=== PATIENT | female | born 1980 | race Caucasian/White ===

== ENCOUNTER 2019-06-17 10:48 | Emergency (ER) | payer OTHER ==
[2019-06-17 11:08] LABS: ADD MAN DIFF? NO
[2019-06-17 11:10] LABS: BASOPHILS % 0.3 % (0.0-2.0); EOSINOPHILS # 0.1 10^3/ul (0.0-0.5); EOSINOPHILS % 1.2 % (0.0-7.0); HEMATOCRIT 43.4 % (37.0-47.0); HEMOGLOBIN 14.2 g/dl (12.0-16.0); LYMPHOCYTES # 3.4 10^3/ul (0.8-2.9); MEAN CORPUSCULAR HGB CONC 32.7 g/dl (32.0-37.0); MEAN CORPUSCULAR VOLUME 91.8 fl (82.0-101.0); MEAN PLATELET VOLUME 10.8 fl (7.4-10.4); MONOCYTE # 0.4 10^3/ul (0.3-0.9); MONOCYTES % 4.9 % (0.0-11.0); NEUTROPHIL # 4.9 10^3/ul (1.6-7.5); NEUTROPHILS % 55.4 % (39.0-77.0); PLATELET COUNT 327 10^3/UL (140-415); RED BLOOD COUNT 4.73 10^6/ul (4.20-5.40); RED CELL DISTRIBUTION WIDTH 12.3 % (11.5-14.5)
[2019-06-17 11:10] LABS: WHITE BLOOD COUNT 8.9 10^3/ul (4.8-10.8)
[2019-06-17] MEDS: KETOROLAC 30 MG INJ IV (11:22)
[2019-06-17] MEDS: METOCLOPRAMIDE 10 MG INJ IV (11:22)
[2019-06-17] MEDS: DIPHENHYDRAMINE 50 MG INJ IV (11:22)
[2019-06-17] MEDS: SOD CHLORIDE 0.9% 1,000 ML IV (11:22)
[2019-06-17 11:51] LABS: ANION GAP 12 (5-13); BLOOD UREA NITROGEN 8 mg/dl (7-20); CALCIUM 9.5 mg/dl (8.4-10.2); CARBON DIOXIDE 25 mmol/L (21-31); CHLORIDE 103 mmol/L (97-110); CREATININE 0.58 mg/dl (0.44-1.00); Estimated GFR > 60 mL/min (>60); GLUCOSE 76 mg/dl (70-220); POTASSIUM 3.8 mmol/L (3.5-5.1); SODIUM 140 mmol/L (135-144)
[2019-06-17 13:13] LABS: INR 0.92; PROTIME 12.5 Sec (11.9-14.9)
[2019-06-17 13:14] LABS: PARTIAL THROMBOPLASTIN TIME 33.3 Sec (23.0-35.0)
[2019-06-17] MEDS: HYDROmorphONE 2 MG/ML SYG IV (13:52)
== END 2019-06-17 15:10 | disposition home or self-care (01) ==
LOC: E/R 10:48
DX: R51 Headache (principal)
CPT/HCPCS: 80048; 81025; 85025; 85610; 85730; 96374; 96375; 99284-25